=== PATIENT | male | born 1980 | race Caucasian/White ===

== ENCOUNTER 2018-10-29 06:06 | Emergency (ER) | payer OTHER ==
[2018-10-29] MEDS ORDERED: Sodium Chloride 0.9% 10 ML Syringe FLUSH PRN (06:25)
[2018-10-29] MEDS ORDERED: Sodium Chloride 0.9% 2.5 ML Syringe FLUSH PRN (06:25)
[2018-10-29] MEDS ORDERED: Sodium Chloride 0.9% 1,000 ML IV ONE (06:26)
[2018-10-29] MEDS ORDERED: Ketorolac 30 MG/ML SDV IVPUSH ONE (06:33)
--- NOTE | 2018-10-29 06:37 | EDM.PDOC ---
<Lauren Cho - Last Filed: 10/29/18 06:46> ED HPI GENERAL MEDICAL PROBLEM - General Chief Complaint: General Stated Complaint: DEHIDRATED Time Seen by Provider: 10/29/18 06:17 - History of Present Illness INITIAL COMMENTS - FREE TEXT/NARRATIVE: HISTORY AND PHYSICAL: History of present illness: The patient is a 37-year-old male who presents with complaints of onset of chills and shaking, feeling very cold and having left lower back pain radiating to his left lower abdomen that started about 4:30 AM, 2 hours ago. Patient said that he had a normal day yesterday without any issues or systemic complaints and he woke up at 3 AM and went to the bathroom and stated up for that and then decided to go back to sleep when the symptoms started. He has no recent trauma and no midline back pain. He has no hematuria dysuria frequency or urgency and no discrete flank pain and no testicular pain or swelling. He has no nausea or vomiting no chest pain or shortness of breath and no upper respiratory symptoms. When he felt cold and shaky he did not take his temperature. He says that the pain is dull and deep and he rates it as a 3/10 and he did not take any [id number] meds for the pain. The patient tells me that 3 years ago he had kidney stones for which he needed to get lithotripsy and the pain that he is experiencing is similar to that. He also says that he tries to drink a lot of water and he maybe did not drink as much water yesterday and he is concerned that he is dehydrated. The patient says he had normal bowel movements yesterday and no diarrhea and has been eating and drinking normally Review of systems: As per history of present illness and below otherwise all systems reviewed and negative. Past medical history: As per history of present illness and as reviewed below otherwise noncontributory. Surgical history: As per history of present illness and as reviewed below otherwise noncontributory. Social history: No reported history of drug or alcohol abuse. Family history: As per history of present illness and as reviewed below otherwise noncontributory. Physical exam: General: Well-developed well-nourished overweight man who is nontoxic and moves easily in the ED. He is in no overt distress and vital signs are noted by me HEENT: Atraumatic, normocephalic, negative for conjunctival pallor or scleral icterus, mucous membranes tacky, throat clear, neck supple, nontender, trachea midline. Lungs: Clear to auscultation, breath sounds equal bilaterally, chest nontender. Heart: S1S2, regular rate and rhythm no overt murmurs Abdomen: Soft, nondistended. Negative for masses or hepatosplenomegaly. Negative for costovertebral tenderness. On palpation there is some minimal left mid and left lower quadrant tenderness but I cannot reproduce the pain exactly and there is no rebound or guarding Pelvis: Stable nontender. Genitourinary: Deferred. Rectal: Deferred. Extremities: Atraumatic, negative for cords or calf pain. Neurovascular unremarkable. Full range of motion and no pedal edema Neuro: Awake, alert, oriented. Cranial nerves II through XII unremarkable. Cerebellum unremarkable. Motor and sensory unremarkable throughout. Exam nonfocal. Skin: Normal turgor no overt rashes or lesions and no diaphoresis Diagnostics: UA with urine culture CBC CMP lactic acid CT scan of the abdomen and pelvis Therapeutics: IV fluids Toradol Case is endorsed to Dr. Hardin to follow-up testing results and disposition patient Impression: Subjective chills and malaise, left back and lower quadrant pain Definitive disposition and diagnosis as appropriate pending reevaluation and review of above. back Pain Score (Numeric/FACES): 5 - Related Data Allergies Allergy/AdvReac Type Severity Reaction Status Date / Time rubber Allergy Hives Uncoded 10/29/18 06:18 Home Meds: Home Meds . [No Known Home Meds] 10/29/18 [History] Past Medical History Respiratory History: Reports: Asthma Musculoskeletal History: Reports: Other (See Below) Other Musculoskeletal History: fx L 5th digit, R ankle sprain - Past Surgical History Respiratory Surgical History: Reports: None Musculoskeletal Surgical History: Reports: None Social & Family History - Family History Family Medical History: Noncontributory - Tobacco Use Smoking Status *Q: Never Smoker Second Hand Smoke Exposure: No - Caffeine Use Caffeine Use: Reports: Soda - Recreational Drug Use Recreational Drug Use: No ED ROS GENERAL - Review of Systems Review Of Systems: ROS reveals no pertinent complaints other than HPI. ED EXAM, GENERAL - Physical Exam Exam: See Below (See dictation) Course - Vital Signs Last Recorded V/S: Last Vital Signs Temp 97.8 F 10/29/18 06:08 Pulse 96 10/29/18 06:08 Resp 19 10/29/18 06:08 BP 147/73 H 10/29/18 06:08 Pulse Ox 97 10/29/18 06:08 - Orders/Labs/Meds Orders: Active Orders 24 hr Category Date Time Status CULTURE URINE [RM] Stat Lab 10/29/18 06:27 Received Sodium Chloride 0.9% [Saline Flush] Med 10/29/18 06:25 Active 10 ml FLUSH ASDIRECTED PRN Sodium Chloride 0.9% [Saline Flush] Med 10/29/18 06:25 Active 2.5 ml FLUSH ASDIRECTED PRN Saline Lock Insert [OM.PC] Stat Oth 10/29/18 06:25 Ordered Medication Orders Sodium Chloride (Saline Flush) 10 ml FLUSH ASDIRECTED PRN PRN Reason: Keep Vein Open Sodium Chloride (Saline Flush) 2.5 ml FLUSH ASDIRECTED PRN PRN Reason: Keep Vein Open Labs: Laboratory Tests 10/29/18 10/29/18 10/29/18 Range/Units 06:27 06:35 06:35 WBC 10.75 (4.0-11.0) K/uL RBC 5.80 (4.50-5.90) M/uL Hgb 17.7 H (13.0-17.0) g/dL Hct 50.2 H (38.0-50.0) % MCV 86.6 (80.0-98.0) fL MCH 30.5 (27.0-32.0) pg MCHC 35.3 (31.0-37.0) g/dL RDW Std Deviation 43.3 (28.0-62.0) fl RDW Coeff of Oj 14 (11.0-15.0) % Plt Count 108 L (150-400) K/uL MPV 11.20 (7.40-12.00) fL Neut % (Auto) 87.6 H (48.0-80.0) % Lymph % (Auto) 9.8 L (16.0-40.0) % Galax % (Auto) 2.0 (0.0-15.0) % Eos % (Auto) 0.4 (0.0-7.0) % Baso % (Auto) 0.2 (0.0-1.5) % Neut # (Auto) 9.4 H (1.4-5.7) K/uL Lymph # (Auto) 1.1 (0.6-2.4) K/uL Galax # (Auto) 0.2 (0.0-0.8) K/uL Eos # (Auto) 0.0 (0.0-0.7) K/uL Baso # (Auto) 0.0 (0.0-0.1) K/uL Nucleated RBC % 0.0 /100WBC Nucleated RBCs # 0 K/uL Lactate 1.5 (0.20-2.00) mmol/L Sodium (136-148) mmol/L Potassium (3.5-5.1) mmol/L Chloride (98-107) mmol/L Carbon Dioxide (21.0-32.0) mmol/L BUN (7.0-18.0) mg/dL Creatinine (0.8-1.3) mg/dL Est Cr Clr Drug Dosing mL/min Estimated GFR (MDRD) ml/min Glucose (74-106) mg/dL Calcium (8.5-10.1) mg/dL Total Bilirubin (0.2-1.0) mg/dL AST (15-37) IU/L ALT (14-63) IU/L Alkaline Phosphatase (46-116) U/L Total Protein (6.4-8.2) g/dL Albumin (3.4-5.0) g/dL Globulin (2.6-4.0) g/dL Albumin/Globulin Ratio (0.9-1.6) Urine Color YELLOW Urine Appearance CLEAR Urine pH 5.0 (5.0-8.0) Ur Specific [place] >= 1.030 (1.001-1.035) Urine Protein NEGATIVE (NEGATIVE) mg/dL Urine Glucose (UA) NEGATIVE (NEGATIVE) mg/dL Urine Ketones NEGATIVE (NEGATIVE) mg/dL Urine Occult Blood MODERATE H (NEGATIVE) Urine Nitrite NEGATIVE (NEGATIVE) Urine Bilirubin NEGATIVE (NEGATIVE) Urine Urobilinogen 0.2 (<2.0) EU/dL Ur Leukocyte Esterase NEGATIVE (NEGATIVE) Urine RBC 1-3 (0-2/HPF) Urine WBC 0-2 (0-5/HPF) Ur Epithelial Cells RARE (NONE-FEW) Urine Bacteria RARE (NEGATIVE) 08/06/19 Range/Units 06:35 WBC (4.0-11.0) K/uL RBC (4.50-5.90) M/uL Hgb (13.0-17.0) g/dL Hct (38.0-50.0) % MCV (80.0-98.0) fL MCH (27.0-32.0) pg MCHC (31.0-37.0) g/dL RDW Std Deviation (28.0-62.0) fl RDW Coeff of Oj (11.0-15.0) % Plt Count (150-400) K/uL MPV (7.40-12.00) fL Neut % (Auto) (48.0-80.0) % Lymph % (Auto) (16.0-40.0) % Galax % (Auto) (0.0-15.0) % Eos % (Auto) (0.0-7.0) % Baso % (Auto) (0.0-1.5) % Neut # (Auto) (1.4-5.7) K/uL Lymph # (Auto) (0.6-2.4) K/uL Galax # (Auto) (0.0-0.8) K/uL Eos # (Auto) (0.0-0.7) K/uL Baso # (Auto) (0.0-0.1) K/uL Nucleated RBC % /100WBC Nucleated RBCs # K/uL Lactate (0.20-2.00) mmol/L Sodium 141 (136-148) mmol/L Potassium 3.9 (3.5-5.1) mmol/L Chloride 104 (98-107) mmol/L Carbon Dioxide 25.9 (21.0-32.0) mmol/L BUN 21 H (7.0-18.0) mg/dL Creatinine 1.5 H (0.8-1.3) mg/dL Est Cr Clr Drug Dosing 72.57 mL/min Estimated GFR (MDRD) 52.1 ml/min Glucose 103 (74-106) mg/dL Calcium 9.4 (8.5-10.1) mg/dL Total Bilirubin 1.3 H (0.2-1.0) mg/dL AST 28 (15-37) IU/L ALT 52 (14-63) IU/L Alkaline Phosphatase 101 (46-116) U/L Total Protein 7.5 (6.4-8.2) g/dL Albumin 4.6 (3.4-5.0) g/dL Globulin 2.9 (2.6-4.0) g/dL Albumin/Globulin Ratio 1.6 (0.9-1.6) Urine Color Urine Appearance Urine pH (5.0-8.0) Ur Specific [place] (1.001-1.035) Urine Protein (NEGATIVE) mg/dL Urine Glucose (UA) (NEGATIVE) mg/dL Urine Ketones (NEGATIVE) mg/dL Urine Occult Blood (NEGATIVE) Urine Nitrite (NEGATIVE) Urine Bilirubin (NEGATIVE) Urine Urobilinogen (<2.0) EU/dL Ur Leukocyte Esterase (NEGATIVE) Urine RBC (0-2/HPF) Urine WBC (0-5/HPF) Ur Epithelial Cells (NONE-FEW) Urine Bacteria (NEGATIVE) Meds: Medications Generic Name Dose Route Start Last Admin Trade Name Freq PRN Reason Stop Dose Admin Sodium Chloride 10 ml 10/29/18 06:25 Saline Flush FLUSH ASDIRECTED PRN Keep Vein Open Sodium Chloride 2.5 ml 10/29/18 06:25 Saline Flush FLUSH ASDIRECTED PRN Keep Vein Open Discontinued Medications Generic Name Dose Route Start Last Admin Trade Name Freq PRN Reason Stop Dose Admin Sodium Chloride 1,000 mls @ 999 mls/hr 10/29/18 06:26 10/29/18 06:36 Normal Saline IV 10/29/18 07:26 999 mls/hr STAT ONE Administration Ketorolac Tromethamine 30 mg 10/29/18 06:33 10/29/18 06:57 Toradol IVPUSH 10/29/18 06:34 30 mg ONETIME ONE Administration Departure - Departure Disposition: Home, Self-Care 01 Condition: Good Clinical Impression: Dehydration, Left flank pain - Discharge Information Referrals: PCP,None [Primary Care Provider] - Forms: ED Department Discharge Additional Instructions: The following information is given to patients seen in the emergency department who are being discharged to home. This information is to outline your options for follow-up care. We provide all patients seen in our emergency department with a follow-up referral. The need for follow-up, as well as the timing and circumstances, are variable depending upon the specifics of your emergency department visit. If you don't have a primary care physician on staff, we will provide you with a referral. We always advise you to contact your personal physician following an emergency department visit to inform them of the circumstance of the visit and for follow-up with them and/or the need for any referrals to a consulting specialist. The emergency department will also refer you to a specialist when appropriate. This referral assures that you have the opportunity for follow-up care with a specialist. All of these measure are taken in an effort to provide you with optimal care, which includes your follow-up. Under all circumstances we always encourage you to contact your private physician who remains a resource for coordinating your care. When calling for follow-up care, please make the office aware that this follow-up is from your recent emergency room visit. If for any reason you are refused follow-up, please contact the [facility] Emergency Department at and asked to speak to the emergency department charge nurse. [facility] [address] [place] [address] <Teresa Hardin - Last Filed: 10/29/18 07:49> ED HPI GENERAL MEDICAL PROBLEM - History of Present Illness INITIAL COMMENTS - FREE TEXT/NARRATIVE: Patient was signed out to me by Dr. 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 Lab results were all normal except for a slightly elevated bilirubin at 1.3 but normal LFTs otherwise. CT scan of his abdomen showed 3 small left-sided kidney stones there is no hydronephrosis or stranding. Of note there was left-sided inguinal area and pelvic sidewalls that is nonspecific. Patient is being discharged after being hydrated, feels improved and will follow up with primary care Departure - Departure Time of Disposition: 07:49 - Discharge Information *PRESCRIPTION DRUG MONITORING PROGRAM REVIEWED*: No *COPY OF PRESCRIPTION DRUG MONITORING REPORT IN PATIENT JUAN: No
[2018-10-29 07:05] LABS: CARBON DIOXIDE,CO2 25.9 mmol/L (21.0-32.0); POTASSIUM,K 3.9 mmol/L (3.5-5.1)
--- NOTE | 2018-10-29 07:13 | CT ---
INDICATION: Left-sided pain. History of nephrolithiasis. TECHNIQUE: CT abdomen and pelvis without contrast, stone protocol. COMPARISON: None FINDINGS: Kidney/ureters: There are 3 tiny nonobstructive stones in the left kidney. No right-sided stones. No ureteral stones and no hydronephrosis or perinephric edema. Liver/gallbladder/bile ducts: The liver is normal in size, shape and attenuation. Few tiny gallbladder stones are present. No signs of inflammation or biliary dilatation. Spleen/pancreas/adrenal glands: The spleen, adrenal glands and pancreas are within normal limits. GI tract: The bowel is unremarkable. Appendix is not visualized. No signs of appendicitis. Abdominal wall/omentum/peritoneum: No free air or significant free fluid. No mass or inflammation. Lymph nodes: Borderline to minimal lymphadenopathy is present in the left inguinal region and in the pelvic sidewalls bilaterally. No sign of lymphadenopathy elsewhere. A small oval shaped calcified body in the right lower quadrant on image 132 likely represents a lymph node. Pelvis: Unremarkable pelvis. Lower chest: Unremarkable. Bones: There are bilateral pars defects at L5 and a minimal grade 1 spondylolisthesis at L5-S1. IMPRESSION: 1. No acute or specific finding to explain left flank pain. 2. Minimal left renal nonobstructive nephrolithiasis. No hydronephrosis. 3. Borderline to minimal lymphadenopathy in the left inguinal region and in both pelvic sidewalls is nonspecific. Please note that all CT scans at this facility use dose modulation, iterative reconstruction, and/or weight-based dosing when appropriate to reduce radiation dose to as low as reasonably achievable. Dictated by Larry Ruiz MD @ Oct 29 2018 7:00AM Signed by Dr. Larry Ruiz @ Oct 29 2018 7:11AM
== END 2018-10-29 08:10 | disposition home or self-care (01) ==
LOC: MW.ED 06:06
DX: E86.0 Dehydration (principal); R68.83 Chills (without fever); R10.32 Left lower quadrant pain; M54.5 Low back pain; Z91.040 Latex allergy status
CPT/HCPCS: 74176; 80053; 81001; 83605; 85025; 87086; 96361; 96374; 99284; J1885; J7040

== ENCOUNTER 2018-11-07 16:07 | Emergency (ER) | payer SELFPAY ==
--- NOTE | 2018-11-07 16:16 | EDM.PDOC ---
ED HPI GENERAL MEDICAL PROBLEM - General Chief Complaint: Lower Extremity Injury/Pain Stated Complaint: LEFT LEG PAIN Time Seen by Provider: 11/07/18 16:09 Source of Information: Reports: Patient History Limitations: Reports: No Limitations - History of Present Illness INITIAL COMMENTS - FREE TEXT/NARRATIVE: History of present illness: []Patient was seen on 10/29 for abdominal pain had a workup with a CT showing nonspecific lymphadenopathy of both pelvic sidewalls and left inguinal area.The rest of his abdomen CT was negative and he left comfortable and improved with hydration. Patient today states that right after he left that visit his left leg started swelling up. He did not return to ED or follow up his primary care. He denies any fevers, chest pain, shortness of breath, numbness, tingling or previous history of DVT. Review of systems: As per history of present illness and below otherwise all systems reviewed and negative. Past medical history: As per history of present illness and as reviewed below otherwise noncontributory. Surgical history: As per history of present illness and as reviewed below otherwise noncontributory. Social history: No reported history of drug or alcohol abuse. Family history: As per history of present illness and as reviewed below otherwise noncontributory. Physical exam: General: Well developed, well nourished in NAD HEENT: Atraumatic, normocephalic, pupils reactive, negative for conjunctival pallor or scleral icterus, mucous membranes moist, throat clear, neck supple, nontender, trachea midline. Lungs: Clear to auscultation, breath sounds equal bilaterally, chest nontender. Heart: S1S2, regular, negative for clicks, rubs, or JVD. Abdomen: NABS, Soft, nondistended, nontender. Negative for masses or hepatosplenomegaly. Negative for costovertebral tenderness. Pelvis: Stable nontender. Genitourinary: Deferred. Rectal: Deferred. Extremities: Atraumatic, left leg is markedly larger than the right leg there is tenderness and erythema with edema. negative for cords or calf pain. Neurovascular unremarkable. Neuro: Awake, alert, oriented. Cranial nerves II through XII unremarkable. Cerebellum unremarkable. Motor and sensory unremarkable throughout. Exam nonfocal. Skin:warm and dry Diagnostics: Doppler ultrasound left leg-no DVT. large pelvic lymph nodes Therapeutics: Ceftriaxone ED Course: Stable Impression: Inguinal lymphadenopathy, left leg swelling Prescriptions: Bactrim Plan: Follow Up with primary care in 1-2 days. Definitive disposition and diagnosis as appropriate pending reevaluation and review of above. Left Lower Leg Pain Score (Numeric/FACES): 5 - Related Data Allergies Allergy/AdvReac Type Severity Reaction Status Date / Time Latex, Natural Rubber Allergy Rash Verified 11/07/18 16:28 rubber Allergy Hives Uncoded 10/29/18 06:18 Home Meds: Home Meds Sulfamethoxazole/Trimethoprim [Bactrim Ds Tablet] 1 each PO BID #20 tablet 11/07 [Rx] Past Medical History Respiratory History: Reports: Asthma Musculoskeletal History: Reports: Other (See Below) Other Musculoskeletal History: fx L 5th digit, R ankle sprain - Past Surgical History Respiratory Surgical History: Reports: None Musculoskeletal Surgical History: Reports: None Social & Family History - Family History Family Medical History: Noncontributory - Caffeine Use Caffeine Use: Reports: Soda Review of Systems - Review of Systems Review Of Systems: See Below ED EXAM, GENERAL - Physical Exam Exam: See Below Course - Vital Signs Last Recorded V/S: Last Vital Signs Temp 98.5 F 11/07/18 16:28 Pulse 63 11/07/18 18:19 Resp 16 11/07/18 16:28 BP 127/61 11/07/18 18:19 Pulse Ox 96 11/07/18 16:28 - Orders/Labs/Meds Meds: Medications Discontinued Medications Generic Name Dose Route Start Last Admin Trade Name Freq PRN Reason Stop Dose Admin Ceftriaxone Sodium 1,000 mg/ 1 mls @ 1 mls/sec 11/07/18 18:26 Lidocaine HCl IM 11/07/18 18:27 ONETIME ONE Departure - Departure Time of Disposition: 18:32 Disposition: Home, Self-Care 01 Condition: Good Clinical Impression: Pelvic lymphadenopathy, Left leg swelling - Discharge Information *PRESCRIPTION DRUG MONITORING PROGRAM REVIEWED*: Not Applicable *COPY OF PRESCRIPTION DRUG MONITORING REPORT IN PATIENT JUAN: Not Applicable Prescriptions: Sulfamethoxazole/Trimethoprim [Bactrim Ds Tablet] 1 each PO BID #20 tablet Referrals: PCP,None [Primary Care Provider] - Forms: ED Department Discharge Additional Instructions: The following information is given to patients seen in the emergency department who are being discharged to home. This information is to outline your options for follow-up care. We provide all patients seen in our emergency department with a follow-up referral. The need for follow-up, as well as the timing and circumstances, are variable depending upon the specifics of your emergency department visit. If you don't have a primary care physician on staff, we will provide you with a referral. We always advise you to contact your personal physician following an emergency department visit to inform them of the circumstance of the visit and for follow-up with them and/or the need for any referrals to a consulting specialist. The emergency department will also refer you to a specialist when appropriate. This referral assures that you have the opportunity for follow-up care with a specialist. All of these measure are taken in an effort to provide you with optimal care, which includes your follow-up. Under all circumstances we always encourage you to contact your private physician who remains a resource for coordinating your care. When calling for follow-up care, please make the office aware that this follow-up is from your recent emergency room visit. If for any reason you are refused follow-up, please contact the [facility] Emergency Department at and asked to speak to the emergency department charge nurse. Take meds as directed, follow up with your primary care physician, return to ER if symptoms worsen or change. [facility] [address] [place] [id number]
[2018-11-07] MEDS ORDERED: cefTRIAXone 1,000 MG in Lidocaine 1% 1 ML IM ONE (18:26)
--- NOTE | 2018-11-07 18:28 | US ---
INDICATION: Left lower extremity swelling TECHNIQUE: Ultrasound venous duplex lower left extremity. Compression venous exam was performed using zuniga-scale, color Doppler, and spectral Doppler analysis. COMPARISON: None available FINDINGS: The study is limited due to patient`s body habitus. The left common femoral vein, superficial femoral vein, popliteal vein and visualized portions of the posterior tibial vein, appear compressible, demonstrating color flow, flow variability and augmentation. The left peroneal vein is not seen. There are shotty left inguinal lymph nodes, measuring up to 3.9 x 1.6 x 2.0 cm. IMPRESSION: Limited study without definite sonographic evidence of a deep venous thrombosis in the left lower extremity. Prominent left inguinal lymph nodes. Correlate clinically Dictated by Darius Queen MD @ 11/07/2018 6:27:27 PM Dictated by: Darius Queen MD @ 11/07/2018 18:28:08 (Electronically Signed)
== END 2018-11-07 18:55 | disposition home or self-care (01) ==
LOC: MW.ED 16:07
DX: M79.89 Other specified soft tissue disorders (principal); R59.1 Generalized enlarged lymph nodes; Z91.040 Latex allergy status
CPT/HCPCS: 93971; 96372; 99283; J0696; J2001

== ENCOUNTER 2018-11-12 19:09 | Emergency (ER) | payer SELFPAY ==
--- NOTE | 2018-11-12 19:23 | EDM.PDOC ---
ED HPI GENERAL MEDICAL PROBLEM - General Chief Complaint: Genitourinary Problem Stated Complaint: PAIN IN GENITALS Time Seen by Provider: 11/12/18 19:22 Source of Information: Reports: Patient History Limitations: Reports: No Limitations - History of Present Illness INITIAL COMMENTS - FREE TEXT/NARRATIVE: HISTORY AND PHYSICAL: History of present illness: Patient is a 37-year-old male who presents to the emergency room with complaints of penile discharge, erythema and dysuria 3 days. He states he did have unprotected sex approximately 6-8 weeks ago but had not had any symptoms until approximately 3 days ago. Was recently placed on Bactrim DS for a left lower extremity cellulitis which she states has improved. Patient denies any fever, chills, headache, change in vision, syncope or near syncope. Denies any chest pain, back pain, shortness of breath or cough. Denies any abdominal pain, nausea, vomiting, diarrhea, constipation. Denies any testicular pain, erythema or swelling. Has not noted any blood in urine or stool. Patient has been eating and drinking appropriately. Review of systems: As per history of present illness and below otherwise all systems reviewed and negative. Past medical history: As per history of present illness and as reviewed below otherwise noncontributory. Surgical history: As per history of present illness and as reviewed below otherwise noncontributory. Social history: See social history for further information Family history: As per history of present illness and as reviewed below otherwise noncontributory. Physical exam: General: Well-developed and well-nourished 37-year-old male. Alert and oriented. Nontoxic appearing and in no acute distress. HEENT: Atraumatic, normocephalic, pupils equal and reactive bilaterally, negative for conjunctival pallor or scleral icterus, mucous membranes moist, trachea midline. No drooling or trismus noted. No meningeal signs. No hot potato voice noted. Lungs: Clear to auscultation, breath sounds equal bilaterally, chest nontender. Heart: S1S2, regular rate and rhythm without overt murmur Abdomen: Soft, nondistended, nontender. Negative for masses or hepatosplenomegaly. Negative for costovertebral tenderness. Pelvis: Stable nontender. Genitourinary: This was done with consent and a evidence custodian at the bedside. Does have irritation and erythema around the meatus. Drainage noted from the urethra. No testicular erythema, soft tissue swelling or tenderness. No open lesions or sores noted. Skin: Intact, warm, dry. No lesions or rashes noted. Extremities: Atraumatic, moves all extremities per self without difficulty or deficits, negative for cords or calf pain. Neurovascular unremarkable. Neuro: Awake, alert, oriented. Cranial nerves II through XII unremarkable. Cerebellum unremarkable. Motor and sensory unremarkable throughout. Exam nonfocal. Notes: Bedside glucose WNL. We'll treat with azithromycin and Rocephin. Encouraged him to follow up with his primary care provider for reevaluation. Supportive care measures were reviewed and discussed. Voices understanding and is agreeable to plan of care. Denies any further questions or concerns at this time. Diagnostics: UA, Chlamydia/[employer]: Rocephin, Azithromycin Prescription: Nystatin Ointment Impression: STD screening Plan: 1. Please abstain from sexual intercourse until the lab results have returned. Always use protection to minimized risk of STD exposure 2. Take the medications as directed. The gonorrhea and chlamydia tests are send out labs, therefore will not be available for 2-3 business days. 3. Please follow-up with your primary care provider in the next 1-2 days. [facility] does offer free STD testing, please follow-up with them for further STD testing needs. Return to the ED as needed and as discussed. Definitive disposition and diagnosis as appropriate pending reevaluation and review of above. Penis Pain Score (Numeric/FACES): 1 - Related Data Allergies Allergy/AdvReac Type Severity Reaction Status Date / Time Latex, Natural Rubber Allergy Rash Verified 11/12/18 19:20 Penicillins Allergy Hives Verified 11/12/18 19:20 rubber Allergy Hives Uncoded 11/12/18 19:20 Home Meds: Home Meds Sulfamethoxazole/Trimethoprim [Bactrim Ds Tablet] 1 each PO BID #20 tablet 11/07 [Rx] Nystatin [Nystatin Ointment] 15 gm TOP QID #1 tube 11/12/18 [Rx] Past Medical History Respiratory History: Reports: Asthma Musculoskeletal History: Reports: Other (See Below) Other Musculoskeletal History: fx L 5th digit, R ankle sprain Dermatologic History: Reports: Cellulitis - Infectious Disease History Infectious Disease History: Reports: None - Past Surgical History Respiratory Surgical History: Reports: None Musculoskeletal Surgical History: Reports: None Social & Family History - Family History Family Medical History: Noncontributory - Caffeine Use Caffeine Use: Reports: Soda ED ROS GENERAL - Review of Systems Review Of Systems: ROS reveals no pertinent complaints other than HPI. ED EXAM, RENAL/ - Physical Exam Exam: See Below (See dictation) Course - Vital Signs Last Recorded V/S: Last Vital Signs Temp 96.3 F 11/12/18 19:17 Pulse 83 11/12/18 19:17 Resp 18 11/12/18 19:17 BP 146/89 H 11/12/18 19:17 Pulse Ox 95 11/12/18 19:17 - Orders/Labs/Meds Orders: Active Orders 24 hr Category Date Time Status Glucose [Blood Glucose Check, Bedside] [RC] ONETIME Care 11/12/18 19:44 Ordered CHLAMYDIA AND GONORRHEA BY [facility] Stat Lab 11/12/18 19:20 Received Labs: Laboratory Tests 11/12/18 Range/Units 19:20 Urine Color YELLOW Urine Appearance CLEAR Urine pH 6.0 (5.0-8.0) Ur Specific [place] >= 1.030 (1.001-1.035) Urine Protein NEGATIVE (NEGATIVE) mg/dL Urine Glucose (UA) NEGATIVE (NEGATIVE) mg/dL Urine Ketones NEGATIVE (NEGATIVE) mg/dL Urine Occult Blood MODERATE H (NEGATIVE) Urine Nitrite NEGATIVE (NEGATIVE) Urine Bilirubin NEGATIVE (NEGATIVE) Urine Urobilinogen 0.2 (<2.0) EU/dL Ur Leukocyte Esterase NEGATIVE (NEGATIVE) Urine RBC 1-2 (0-2/HPF) Urine WBC 0-1 (0-5/HPF) Ur Epithelial Cells RARE (NONE-FEW) Urine Bacteria RARE (NEGATIVE) Meds: Medications Discontinued Medications Generic Name Dose Route Start Last Admin Trade Name Freq PRN Reason Stop Dose Admin Azithromycin 1,000 mg 11/12/18 19:24 11/12/18 19:41 Zithromax PO 11/12/18 19:25 1,000 mg NOW STA Administration Ceftriaxone Sodium 1 gm 11/12/18 19:25 11/12/18 19:40 Rocephin IM 11/12/18 19:26 1 gm ONETIME ONE Administration Lidocaine HCl 2 ml 11/12/18 19:24 11/12/18 19:41 Xylocaine-Mpf 1% INJECT 11/12/18 19:25 2 ml ONETIME ONE Administration Departure - Departure Time of Disposition: 19:49 Disposition: Home, Self-Care 01 Clinical Impression: Screen for STD (sexually transmitted disease) - Discharge Information Prescriptions: Nystatin [Nystatin Ointment] 15 gm TOP QID #1 tube Instructions: Sexually Transmitted Disease, [id number] Referrals: PCP,None [Primary Care Provider] - Forms: ED Department Discharge Additional Instructions: The following information is given to patients seen in the emergency department who are being discharged to home. This information is to outline your options for follow-up care. We provide all patients seen in our emergency department with a follow-up referral. The need for follow-up, as well as the timing and circumstances, are variable depending upon the specifics of your emergency department visit. If you don't have a primary care physician on staff, we will provide you with a referral. We always advise you to contact your personal physician following an emergency department visit to inform them of the circumstance of the visit and for follow-up with them and/or the need for any referrals to a consulting specialist. The emergency department will also refer you to a specialist when appropriate. This referral assures that you have the opportunity for follow-up care with a specialist. All of these measure are taken in an effort to provide you with optimal care, which includes your follow-up. Under all circumstances we always encourage you to contact your private physician who remains a resource for coordinating your care. When calling for follow-up care, please make the office aware that this follow-up is from your recent emergency room visit. If for any reason you are refused follow-up, please contact the [facility] at and asked to speak to the emergency department charge nurse. [facility] [address] [place] [id number] [address] 1. Please abstain from sexual intercourse until the lab results have returned. Always use protection to minimized risk of STD exposure 2. Take the medications as directed. The gonorrhea and chlamydia tests are send out labs, therefore will not be available for 2-3 business days. 3. Please follow-up with your primary care provider in the next 1-2 days. [facility] does offer free STD testing, please follow-up with them for further STD testing needs. Return to the ED as needed and as discussed. - My Orders Last 24 Hours: My Active Orders 11/12/18 19:20 CHLAMYDIA AND GONORRHEA BY [facility] Stat 11/12/18 19:44 Glucose [Blood Glucose Check, Bedside] [RC] ONETIME - Assessment/Plan Last 24 Hours: My Active Orders 11/12/18 19:20 CHLAMYDIA AND GONORRHEA BY [facility] Stat 11/12/18 19:44 Glucose [Blood Glucose Check, Bedside] [RC] ONETIME
[2018-11-12] MEDS ORDERED: Lidocaine 1% PF 2 ML SDV INJECT ONE (19:24)
[2018-11-12] MEDS ORDERED: Azithromycin 250 MG Tab PO STA (19:24)
[2018-11-12] MEDS ORDERED: cefTRIAXone 1 GM Vial IM ONE (19:25)
== END 2018-11-12 20:08 | disposition home or self-care (01) ==
LOC: MW.ED 19:09
DX: Z11.3 Encounter for screening for infections with a predominantly sexual mode of transmission (principal); Z91.040 Latex allergy status; Z88.0 Allergy status to penicillin
CPT/HCPCS: 81001; 82962; 87491; 87591; 96372; 99283; A9270; J0696; J2001